=== PATIENT | female | born 1955 | race African-American/Black ===

== ENCOUNTER → 2019-12-04 | Outpatient (CLI) | payer OTHER ==
[~2019-12-04] VITALS: Ht 162.6 cm; Wt 106.1 kg
[~2019-12-04] MED LIST: ADULT LOW DOSE81 MG PO; ALLERGY RELIEF180 MG PO; AMLODIPINE PO; ASA81BEC PO; ATIVAN0.5 MG PO; FLONASE 0.05%50 MCG NARES; FUROSEMIDE 40 M40 MG PO; GLIPIZIDE ER10 MG PO; HCTZ PO; JANUMET XR 50-1 EAC1 PO; KLOR-CON 10 ER10 MEQ PO; LOSARTAN-HCTZ1 EAC3 PO; METFORMIN PO; MULTI VITAMIN1 EACH PO; NAPROSYN500 MG PO; PRAVACHOL20 MG PO; TOPROL XL25 MG PO
[2019-12-04 14:33] VITALS: BP 145/56
--- NOTE | 2019-12-04 14:55 | NUR ---
Pain Clinic Assessment: 1. History of Osteoarthritis: Right Lower Extremity Left Lower Extremity History of Rheumatoid Arthritis: Not Applicable 2. Height: 5 ft. 4 in. 162.6 cm. Weight: 234.0 lb. oz. 106.142 kg. Patient's BMI: 40.1 3. Vital Signs: BP: 145/56 Pulse: 71 Resp: 16 Temp: 02 Sat: 97 ECG Mon: 4. Pain Intensity: 9 5. Fall Risk: Dizziness: N Needs help standing or walking: Y Fallen in the last 3 months: N Fall risk comments: 6. Patient on Blood Thinner: None 7. History of Hypertension: Y 8. Opioid Therapy greater than 6 weeks: N Opiate Contract Signed: 9. Risk Assessment Tool Provided: 10. Functional Assessment Tool: 11. Recreational Drug Use: Never Drug Type: Tobacco Use: Never Smoker Tobacco Type: Amount or Packs/day: How Many Years: Alcohol Use: Yes Frequency: Weekly Quant: 4
--- NOTE | 2019-12-19 14:21 | HPC ---
[facility] [address] [address] PAIN MANAGEMENT CONSULTATION Name: DELPHINE JOEL [facility] [id number] Admission: 12/04/19 Attend Phys: Mike Barker DO Discharge: Date of : 55 Report #: [id number] THIS REPORT FOR: cc: FAM - Family physician unknown Physician not on staff Mike Barker DO ~ DATE OF SERVICE: 12/04/2019 CHIEF COMPLAINT: Right axial back pain. HISTORY OF PRESENT ILLNESS: As you know, the patient is a 64-year-old, class 3, morbidly obese female with a longstanding history of low back pain on the right side. The patient indicates that the pain began on 03/26/2019. She denies injury or trauma that may have led to symptom development. She states she has trialled [id number] medication management without improvement. She underwent physical therapy and water therapy without benefit. She was subsequently then seen by Orthopedics who suggested the possibility of treatment with interventional therapies. She was given a diagnosis of chronic back pain and referred to our clinic to discuss options for treatment. She has undergone imaging dated 06/06/2019, which only shows a mild circumferential L3-4 disk bulge. Normal spinal canal and neural foramen throughout. Mild degenerative changes noted at the L4-5 and L5-S1 levels. The patient states today her pain is continuous and constant, describes the pain as aching, throbbing and tender, places current pain score at 9/10, daily average of 9/10, worst pain has been 10/10. The patient's pain is exacerbated with "bending, improves with relaxation and pain medications." She has been referred to our service to discuss treatment options for chronic axial back pain without inciting injury or trauma. PAST MEDICAL HISTORY: 1. Hypertension. 2. Diabetes mellitus type 2. 3. Dyslipidemia. 4. Seasonal allergies. 5. Class 3 morbid obesity. PAST SURGICAL HISTORY: 1. Right total knee arthroplasty. 2. Right eye surgery. SOCIAL HISTORY: The patient denies tobacco, IV or illicit drug use. Admits to one alcohol beverage per day. She is retired, retired years ago. She is not receiving workmen's compensation nor is she trying to obtain discrete benefits. She is not in litigation in regards to pain. She is unaccompanied at [address] [address] PAIN MANAGEMENT CONSULTATION Name: DELPHINE JOEL Breezy Room #: [facility]#: [id number] Admission: 12/04/19 Attend Phys: Mike Barker DO Discharge: Date of : 55 Report #: [id number] visit. REVIEW OF SYSTEMS: Positive for decrease in appetite, fever, night sweats, fatigue, and weakness, wearing corrective eyewear, blurred and double vision, rash and itching, varicose veins, non-insulin dependent diabetes, hypertension, dyslipidemia, and chronic low back pain. All other review of systems negative per 12-point review of systems other than those listed in the history of present illness. Pain impact score 60/70 indicating near complete interference of daily activities secondary to pain. ALLERGIES: SULFA. CURRENT MEDICATIONS: Glipizide 10 mg twice a day, potassium chloride 10 mEq once a day, furosemide 40 mg per day, fluticasone 2 sprays each nostril per day, amlodipine 10 mg per day, fexofenadine 180 mg once a day, pravastatin 20 mg once a day, Janumet XR mg once a day, multivitamin 1 tab per day, losartan/hydrochlorothiazide 100/25 one tab per day, aspirin 81 mg per day, metoprolol 25 mg per day, and naproxen 500 mg twice a day. IMAGING: MRI of lumbar spine obtained 06/06/2019 shows mild degenerative changes at the L3-4, L4-5 and L5-S1 apophyseal joints. Lumbar spinal canal and neural foramen are adequate. Mild circumferential disk bulge noted at L3-4. Otherwise, normal MRI of the lumbar spine. PQRS: The patient has reported arthritic changes of the bilateral hips and bilateral knees. No rheumatoid arthritis. She is placing her pain today at 9/10. She is not a fall risk, has not had a fall in last 3 months. She is not on blood thinners, but is treated for hypertension. She is not on chronic opioids and has a low opioid addiction potential. Pain impact score 60/70, severe near complete interference of daily activities secondary to pain. PHYSICAL EXAMINATION: VITAL SIGNS: Blood pressure 145/56, pulse 71, respiratory rate 16 and unlabored. The patient is 97% on room air. Height 5 feet 4 inches tall, weight 234 pounds and BMI calculated at 40.1. GENERAL: Well-developed, well-nourished, well-hydrated, class 3, morbidly obese 64-year-old female appearing stated age. She is in no acute distress, awake, alert and oriented x 3. Current pain score 9/10. HEENT: Normocephalic, atraumatic. Pupils equal, round and reactive. Speech is fluent. EXTREMITIES: Show no clubbing, no cyanosis, and no edema. MUSCULOSKELETAL: Lower extremity strength equal and symmetrical at 5/5. Deconditioning noted bilaterally. Seated straight leg raising negative. Supine straight leg raising negative. Blessing's test is negative. Modified [facility] [address] [place] [address] PAIN MANAGEMENT CONSULTATION Name: DELPHINE JOEL Room #: REG [facility] Cueto.#: [id number] Admission: 12/04/19 Attend Phys: Mike Barker DO Discharge: Date of : 55 Report #: [id number] positive for right low back pain directly over the L4-5 and L5-S1 facet joints. Ankle clonus negative. Babinski is negative. Lumbar provocation testing is met with increasing pain with specifically rotation and lateral flexion to the right, negative left. ASSESSMENT: 1. Mild facet arthropathy of the lumbar spine. 2. Class 3 morbid obesity. 3. Generalized deconditioning. PLAN: 1. Based on today's physical exam, history the patient has provided, the description the patient uses in regards to pain as well as location of symptoms, likely source of the symptoms is due to the facet arthropathy noted at the L4-5 and L5-S1 level, specifically on the right side. The patient is experiencing no pain on the left. We have discussed with the patient the treatment options for facet arthropathy pain. The following was discussed with the patient today. We discussed physical therapy, stretching exercises, core strengthening and a concerted effort at weight loss. This is the gold standard of treatment for her mild arthritic changes. We have discussed medication management utilizing nonsteroidal anti-inflammatories as the baseline medication. She is not a candidate for opioids as they are not effective for long-term treatment for mild arthritic changes. We discussed intra-articular facet injections for which the patient was referred to our clinic. We also discussed surgical options, though given the mild nature of the findings, she is not a surgical candidate. After reviewing the risks and benefits of all the proposed treatment options, the patient chose to look towards interventional treatments. 2. The patient was advised that treatment would be a right intra-articular facet injection at L4-5 and L5-S1. At this juncture, the patient wishes to consider her options before moving forward with this procedure. We have set the patient a return appointment in the future to discuss this option more completely. She wishes to think about the options before moving forward. Given the fact that we are seeing only mild changes at the L4-5 and L5-S1 level and the remainder of her MRI is completely normal for her age and body habitus, treatment could be remaining conservative and she does wish to consider this as an option as well. 3. We will see the patient back in followup visit on an as needed basis. We have made the patient a tentative appointment and we will keep you apprised if she does return to undergo the procedure. 4. We wish to thank nurse practitioner, Flaco, for the opportunity to see this patient in consultation. We will keep you apprised of response to treatment as we address her mild facet arthropathy pain. Once we have completed the [address] [address] PAIN MANAGEMENT CONSULTATION Name: DELPHINE JOEL Room #: REG Sugey Jimenez#: [id number] Admission: 12/04/19 Attend Phys: Mike Barker DO Discharge: Date of : 55 Report #: [id number] intraarticular injections, we will be returning her care to your capable services. Again, we wish to thank you for the opportunity to see the patient in consultation. <ELECTRONICALLY SIGNED> By: Mike Barker DO 12/19/19 [id number] Mike Barker DO /nt
== END ==
LOC: PAIN 07:04
PROVIDERS: ATTEND Anesthesiology Pain Medicine
DX: M47.816 Spondylosis without myelopathy or radiculopathy, lumbar region (principal); E66.9 Obesity, unspecified; Z72.3 Lack of physical exercise; Z88.2 Allergy status to sulfonamides; Z79.899 Other long term (current) drug therapy